=== PATIENT | male | born 1995 | race Caucasian/White ===

== ENCOUNTER → 2019-01-16 | Outpatient (CLI) | payer OTHER ==
[2019-01-16 19:43] LABS: T4, Free (Free Thyroxine) 1.2 ng/dL (0.80-1.80)
[2019-01-16 21:40] LABS: Hemoglobin A1C 5.2 % (4.0-6.0)
== END | disposition home or self-care (01) ==
LOC: LABWHC1 11:33
PROVIDERS: ATTEND Psychiatry & Neurology Psychiatry
DX: Z51.81 Encounter for therapeutic drug level monitoring (principal); Z79.899 Other long term (current) drug therapy
CPT/HCPCS: 36415; 80061; 82947; 83036; 84439; 84443

== ENCOUNTER 2024-01-22 18:35 | Emergency (ER) | payer OTHER ==
[2024-01-22 18:52] VITALS: RESP 18
[2024-01-22] MEDS: IBUPROFEN 800 MG TAB PO STA (19:27)
[2024-01-22] MEDS: ONDANSETRON ODT 4 MG TAB PO STA (19:28)
[2024-01-22] MEDS: Acetaminophen-Codeine 300-30mg TAB PO STA (20:36)
--- NOTE | 2024-01-22 20:47 | ED ---
ENT HPI - General Chief complaint: Dental/Oral Stated complaint: oral pain dizzy NVD Time Seen by Provider: 01/22/24 19:04 Source: patient Mode of arrival: ambulatory Limitations: no limitations - History of Present Illness Initial comments: 29-year-old male presenting with multiple complaints. Patient admits to dental pain that has been on and off for a few weeks. Patient does not see a dentist because "he is afraid of shots". Patient also admits to headache nausea vomiting and diarrhea. Patient has been taking Orajel and Tylenol. No abdominal pain, chest pain, difficulty breathing. No difficulty swallowing or trismus. No drooling or voice changes. No fevers or chills. No neck pain. - Related Data Previous Rx's Medication Instructions Recorded Amoxic-Pot Clav 875-125Mg 1 tab PO BID 7 Days #14 tab 01/22/24 [Augmentin 875-125] Ondansetron Odt [Zofran Odt] 4 mg PO Q8HR PRN #20 tab 01/22/24 Allergies Allergy/AdvReac Type Severity Reaction Status Date / Time No Known Allergies Allergy Verified 07/31/16 11:47 Review of Systems ROS Statement: Those systems with pertinent positive or pertinent negative responses have been documented in the HPI. ROS Other: All systems not noted in ROS Statement are negative. Past Medical History Past Medical History: No Reported History History of Any Multi-Drug Resistant Organisms: None Reported Past Surgical History: No Surgical Hx Reported Past Psychological History: Depression Smoking Status: Current every day smoker Past Alcohol Use History: None Reported Past Drug Use History: Marijuana General Exam Limitations: no limitations General appearance: alert, in no apparent distress Head exam: Present: atraumatic, normocephalic Eye exam: Present: normal appearance, EOMI ENT exam: Present: normal oropharynx, mucous membranes moist Expanded Teeth exam: Present: dental caries Neck exam: Present: normal inspection. Absent: meningismus Respiratory exam: Present: normal lung sounds bilaterally. Absent: respiratory distress, wheezes, rales, rhonchi, stridor Cardiovascular Exam: Present: regular rate, normal rhythm, normal heart sounds. Absent: systolic murmur, diastolic murmur, rubs, gallop, clicks Neurological exam: Present: alert, oriented X3 Psychiatric exam: Present: normal affect, normal mood Skin exam: Present: warm, dry Course Vital Signs 01/22/24 01/22/24 18:45 21:11 Temperature 97.8 F 98.1 F Pulse Rate 114 H 81 Respiratory 18 18 Rate Blood Pressure 152/96 147/84 O2 Sat by Pulse 96 97 Oximetry Medical Decision Making - Medical Decision Making Was pt. sent in by a medical professional or institution ([facility], [employer], urgent care, hospital, or prison...) When possible be specific @ -No Did you speak to anyone other than the patient for history (EMS, parent, family, police, friend...)? What history was obtained from this source @ -No Did you review nursing and triage notes (agree or disagree)? Why? @ -I reviewed and agree with nursing and triage notes Were old charts reviewed (outside hosp., previous admission, EMS record, old EKG, old radiological studies, urgent care reports/EKG's, prison records)? Report findings @ -No old charts were reviewed Differential Diagnosis (chest pain, altered mental status, abdominal pain women, abdominal pain men, vaginal bleeding, weakness, fever, dyspnea, syncope, headache, dizziness, GI bleed, back pain, seizure, CVA, palpatations, mental health, musculoskeletal)? @ -Differential includes toothache, dental abscess, Jose's angina, viral syndrome, this is not an all-inclusive list EKG interpreted by me (3pts min.). @ -As above X-rays interpreted by me (1pt min.). @ -None done CT interpreted by me (1pt min.). @ -None done U/S interpreted by me (1pt. min.). @ -None done What testing was considered but not performed or refused? (CT, X-rays, U/S, labs)? Why? @ -None What meds were considered but not given or refused? Why? @ -None Did you discuss the management of the patient with other professionals (professionals i.e. [facility], [employer]ATOR, lab, RT, psych nurse, health care social worker, environmental resource specialist, teacher, precinct commanding officer, casework supervisor)? Give summary @ -No Was smoking cessation discussed for >3mins.? @ -No Was critical care preformed (if so, how long)? @ -No Were there social determinants of health that impacted care today? How? (Homelessness, low income, unemployed, alcoholism, drug addiction, transporta tion, low edu. Level, literacy, decrease access to med. care, [facility], rehab)? @ -No Was there de-escalation of care discussed even if they declined (Discuss DNR or withdrawal of care, Hospice)? DNR status @ -No What co-morbidities impacted this encounter? (DM, HTN, Smoking, COPD, CAD, Cancer, CVA, ARF, Chemo, Hep., AIDS, mental health diagnosis, sleep apnea, morbid obesity)? @ -None Was patient admitted / discharged? Hospital course, mention meds given and route, prescriptions, significant lab abnormalities, going to OR and other pertinent info. @ -. 29 y/o Male presenting chief complaint of dental pain as well as headache nausea vomiting. History and physical exam are conducted. He does have dental caries on exam. He is negative for influenza, RSV, COVID, group A strep. He will be treated for dental abscess with Augmentin. Provided with dental clinic follow-up. Provided with friend for nausea. Discharged home. Follow-up with PCP. Report back to ER with any new or worsening symptoms. Discussed return parameters and answered all questions. Patient conveyed verbal understanding and agreed to the plan. I discussed this case in detail with my attending Dr. Stack Undiagnosed new problem with uncertain prognosis? @ -No Drug Therapy requiring intensive monitoring for toxicity (Heparin, Nitro, Insulin, Cardizem)? @ -No Were any procedures done? @ -No Diagnosis/symptom? @ -Dental abscess, nausea vomiting Acute, or Chronic, or Acute on Chronic? @ -Acute Uncomplicated (without systemic symptoms) or Complicated (systemic symptoms)? @ -Uncomplicated Side effects of treatment? @ -No Exacerbation, Progression, or Severe Exacerbation? @ -No Poses a threat to life or bodily function? How? (Chest pain, USA, [place], pneumonia, PE, COPD, DKA, ARF, appy, cholecystitis, CVA, Diverticulitis, Homicidal, Suicidal, threat to staff... and all critical care pts) @ -Low likelihood - Lab Data Lab Results 01/22/24 01/22/24 Range/Units 19:56 19:56 Influenza Type A (PCR) Not Detected (Not Detectd) Influenza Type B (PCR) Not Detected (Not Detectd) RSV (PCR) Not Detected (Not Detectd) SARS-CoV-2 (PCR) Not Detected (Not Detectd) Group A Strep (PCR) NOT DETECTED (Not Detectd) Disposition Clinical Impression: Dental abscess, Nausea & vomiting Disposition: HOME SELF-CARE Condition: Good Instructions (If sedation given, give patient instructions): Dental Abscess (ED), Acute Nausea and Vomiting (ED) Additional Instructions: Follow-up with PCP and dentist. Report back to ER with any new or worsening symptoms. [facility]. [facility] [place] [address]. Phone number for new patients or [phone] for existing patients. Prescriptions: Amoxic-Pot Clav 875-125Mg [Augmentin 875-125] 1 tab PO BID 7 Days #14 tab Ondansetron Odt [Zofran Odt] 4 mg PO Q8HR PRN #20 tab PRN Reason: Nausea Is patient prescribed a controlled substance at d/c from ED?: No Referrals: None,Stated [Primary Care Provider] - 1-2 days Time of Disposition: 20:47
[2024-01-22] MEDS: ACET/COD 300 MG/30 MG STARTER PACK 6 TAB BTL PO STA (21:10)
[2024-01-22 21:27] VITALS: BP 147/84; PULSE 81; TEMP 98.1
== END 2024-01-22 21:12 | disposition home or self-care (01) ==
LOC: EC 18:35
DX: K04.7 Periapical abscess without sinus (principal); R11.2 Nausea with vomiting, unspecified; F17.200 Nicotine dependence, unspecified, uncomplicated; F12.90 Cannabis use, unspecified, uncomplicated; Z11.52 Encounter for screening for COVID-19
CPT/HCPCS: 87636; 87651; 99283

== ENCOUNTER 2024-02-05 22:10 | Emergency (ER) | payer OTHER ==
--- NOTE | 2024-02-05 22:34 | ED ---
ENT HPI - General Source: patient, RN notes reviewed Mode of arrival: ambulatory Limitations: no limitations <Destiny Soto - Last Filed: 02/05/24 22:32> - General Source: patient, RN notes reviewed Mode of arrival: ambulatory Limitations: no limitations <Federica Hoyos - Last Filed: 02/06/24 00:43> - General Chief complaint: Dental/Oral Stated complaint: Tooth pain Time Seen by Provider: 02/05/24 22:22 - History of Present Illness Initial comments: Work notethis is a 29-year-old male presents emergency department chief complaint of right mandibular tooth ache over the past few weeks. He denies fevers, chills, nausea, vomiting, trismus. Was seen in the emergency department at the end of December and was discharged home with amoxicillin. (Destiny Soto) 29-year-old male presented to the ER with chief complaint of dental pain. He states this been going on for over a month and was recently taking amoxicillin. He states he has tried [id number] Tylenol and Orajel without relief. He localizes most of his pain over his right mandible. Denies any drainage. Denies any difficulty handling secretions, throat swelling, tongue swelling, fevers, chills. No other complaints. Patient states he has not been able to follow-up with a dentist due to insurance issues. (Federica Hoyos) - Related Data Previous Rx's Medication Instructions Recorded Amoxic-Pot Clav 875-125Mg 1 tab PO BID 7 Days #14 tab 01/22/24 [Augmentin 875-125] Ondansetron Odt [Zofran Odt] 4 mg PO Q8HR PRN #20 tab 01/22/24 Clindamycin [Cleocin] 150 mg PO Q6H #40 capsule 02/05/24 Allergies Allergy/AdvReac Type Severity Reaction Status Date / Time No Known Allergies Allergy Verified 07/31/16 11:47 Review of Systems ROS Other: All systems not noted in ROS Statement are negative. <Destiny Soto - Last Filed: 02/05/24 22:32> ROS Other: All systems not noted in ROS Statement are negative. <Federica Hoyos - Last Filed: 02/06/24 00:43> ROS Statement: Those systems with pertinent positive or pertinent negative responses have been documented in the HPI. Past Medical History Past Medical History: No Reported History History of Any Multi-Drug Resistant Organisms: None Reported Past Surgical History: No Surgical Hx Reported Past Psychological History: Depression Smoking Status: Current every day smoker Past Alcohol Use History: None Reported Past Drug Use History: Marijuana <Destiny Soto - Last Filed: 02/05/24 22:32> General Exam Limitations: no limitations <Destiny Soto - Last Filed: 02/05/24 22:32> General appearance: alert, in no apparent distress, other (unkept) Head exam: Present: atraumatic, normocephalic, normal inspection Eye exam: Present: normal appearance, PERRL, EOMI. Absent: scleral icterus, conjunctival injection, periorbital swelling ENT exam: Present: normal oropharynx (Yellow plaque noted on all teeth. Gum line erythematous. No drainable abscess or purulent drainage.) Neck exam: Present: normal inspection. Absent: tenderness, meningismus, lymphadenopathy Respiratory exam: Present: normal lung sounds bilaterally. Absent: respiratory distress, wheezes, rales, rhonchi, stridor Cardiovascular Exam: Present: regular rate, normal rhythm, normal heart sounds. Absent: systolic murmur, diastolic murmur, rubs, gallop, clicks Skin exam: Present: warm, dry, intact, normal color. Absent: rash <Federica Hoyos - Last Filed: 02/06/24 00:43> - General Exam Comments Initial Comments: Visual Physical Exam Vital signs reviewed General: Well-appearing, nontoxic, no acute distress. Head: Normocephalic, atraumatic Eyes: PERRLA, EOMI ENT: Airway patent Chest: Nonlabored breathing Skin: No visual rash, normal skin tone Neuro: Alert and oriented 3 Musculoskeletal: No gross abnormalities (Destiny Soto) Course Vital Signs 02/05/24 22:18 Temperature 98.4 F Pulse Rate 80 Respiratory 16 Rate Blood Pressure 153/84 O2 Sat by Pulse 99 Oximetry Medical Decision Making <Destiny Soto - Last Filed: 02/05/24 22:32> <Federica Hoyos - Last Filed: 02/06/24 00:43> - Medical Decision Making I completed the quick note portion of this chart signed Destiny Soto PA-C (Destiny Soto) Was pt. sent in by a medical professional or institution ([facility] [employer], [employer], urgent care, hospital, or senior care...) When possible be specific @ -No Did you speak to anyone other than the patient for history (EMS, parent, family, police, friend...)? What history was obtained from this source @ -No Did you review nursing and triage notes (agree or disagree)? Why? @ -I reviewed and agree with nursing and triage notes Were old charts reviewed (outside hosp., previous admission, EMS record, old EKG, old radiological studies, urgent care reports/EKG's, senior care records)? Report findings @ -No old charts were reviewed Differential Diagnosis (chest pain, altered mental status, abdominal pain women, abdominal pain men, vaginal bleeding, weakness, fever, dyspnea, syncope, headache, dizziness, GI bleed, back pain, seizure, CVA, palpatations, mental health, musculoskeletal)? @ -Dental caries, gingivitis, abscess, Jose angina this list is not meant to be all-inclusive EKG interpreted by me (3pts min.). @ -None X-rays interpreted by me (1pt min.). @ -None done CT interpreted by me (1pt min.). @ -None done U/S interpreted by me (1pt. min.). @ -None done What testing was considered but not performed or refused? (CT, X-rays, U/S, labs)? Why? @ -None What meds were considered but not given or refused? Why? @ -None Did you discuss the management of the patient with other professionals (professionals i.e. [employer], [employer], lab, RT, psych nurse, clinical social work therapist, senior bioinformatics scientist, teacher, associate loan officer, showcase trimmer)? Give summary @ -No Was smoking cessation discussed for >3mins.? @ -I discussed smoking cessation for greater than 3 minutes. The risk of smoking were discussed with the patient including but not limited to risks of cancer, stroke, coronary artery disease and COPD. Also discussed with patient were multiple methods of quitting smoking. Lastly we discussed the financial cost of smoking. Was critical care preformed (if so, how long)? @ -No Were there social determinants of health that impacted care today? How? (Homelessness, low income, unemployed, alcoholism, drug addiction, transportation, low edu. Level, literacy, decrease access to med. care, long term, rehab)? @ -Yes, patient currently does not have dental insurance. Was there de-escalation of care discussed even if they declined (Discuss DNR or withdrawal of care, Hospice)? DNR status @ -No What co-morbidities impacted this encounter? (DM, HTN, Smoking, COPD, CAD, Cancer, CVA, ARF, Chemo, Hep., AIDS, mental health diagnosis, sleep apnea, morbid obesity)? @ -Smoker Was patient admitted / discharged? Hospital course, mention meds given and route, prescriptions, significant lab abnormalities, going to OR and other pertinent info. @ -Discharge. 29-year-old male presented to the ER with chief complaint of dental pain. History and physical exam completed. Vitals stable. Patient no signs acute distress and nontoxic-appearing. Erythema with no drainable abscess. Oropharynx clear and open. No tongue swelling, neck swelling, or difficulty handling secretions. I discussed with patient it is important for him to follow-up with a dentist and referral will be given. Clindamycin prescribed, first dose in the ER. Patient also received IM Decadron and Tylenol 3 starter pack for pain control. Return parameters discussed. Patient discharged stable condition with follow-up to a dentist. Patient verbal expressed understanding and agreement with care plan. Case discussed with ED attending, Dr. May. Undiagnosed new problem with uncertain prognosis? @ -No Drug Therapy requiring intensive monitoring for toxicity (Heparin, Nitro, Insulin, Cardizem)? @ -No Were any procedures done? @ -No Diagnosis/symptom? @ -Dental pain Acute, or Chronic, or Acute on Chronic? @ -Acute Uncomplicated (without systemic symptoms) or Complicated (systemic symptoms)? @ -Complicated Side effects of treatment? @ -No Exacerbation, Progression, or Severe Exacerbation? @ -No Poses a threat to life or bodily function? How? (Chest pain, USA, [place], pneumonia, PE, COPD, DKA, ARF, appy, cholecystitis, CVA, Diverticulitis, Homicidal, Suic idal, threat to staff... and all critical care pts) @ -No (Federica Hoyos) Disposition <Destiny Soto - Last Filed: 02/05/24 22:32> Is patient prescribed a controlled substance at d/c from ED?: No Time of Disposition: 23:26 <Federica Hoyos - Last Filed: 02/06/24 00:43> Clinical Impression: Gingivitis, Pain, dental Disposition: HOME SELF-CARE Condition: Stable Instructions (If sedation given, give patient instructions): Toothache (ED) Additional Instructions: Complete full course of antibiotics. You may take OTC tylenol and motrin. Follow-up with dentist referral given. Return to the ER for any new or worsening symptoms. Prescriptions: Clindamycin [Cleocin] 150 mg PO Q6H #40 capsule Referrals: None,Stated [Primary Care Provider] - 1-2 days Efrem Cottrell DDS [STAFF PHYSICIAN] - 1-2 days Jeannine Novak DDS [STAFF PHYSICIAN] - 1-2 days Forms: Area PCPs, Community Resources
[2024-02-05 22:42] VITALS: BP 153/84; PULSE 80; RESP 16; TEMP 98.4
[2024-02-05] MEDS: CLINDAMYCIN 150 MG CAP PO STA (23:32)
[2024-02-05] MEDS: DEXAMETHASONE SOD PHOSPHATE 4 MG/ML 1 ML VIAL IM STA (23:32)
[2024-02-05] MEDS: ACET/COD 300 MG/30 MG STARTER PACK 6 TAB BTL PO STA (23:33)
== END 2024-02-05 23:38 | disposition home or self-care (01) ==
LOC: EC 22:10
DX: K05.10 Chronic gingivitis, plaque induced (principal)
CPT/HCPCS: 99282; 99406; 96372; J1100